=== PATIENT | male | born 1945 | race Caucasian/White ===

== ENCOUNTER 2022-02-09 10:39 | Emergency (ER) | payer MEDICARE, OTHER ==
[2022-02-09] MEDS ORDERED: Iopamidol 612 MG/ML 100 ML Bottle IV ONE (12:56)
[2022-03-06 14:15] LABS: ANION GAP 13.6 mEq/L (7-13); CHLORIDE,CL 97 mmol/L (98-107); ESTIMATED GFR 47 mL/min (>=60); SODIUM,NA 133 mmol/L (136-145)
[2022-03-06 14:19] LABS: CORONAVIRUS COVID-19 NAA POSITIVE (NEGATIVE); RESPIRATORY SYNCYTIAL VIR NAA NEGATIVE (NEGATIVE)
== END 2022-02-09 17:30 ==
LOC: DL.ED 10:39
DX: A41.9 Sepsis, unspecified organism (principal); Z91.49 Other personal history of psychological trauma, not elsewhere classified; Z20.822 Contact with and (suspected) exposure to COVID-19
CPT/HCPCS: 0241U; 36415; 71045; 71260; 76705; 80053; 81001; 83605; 83690; 83735; 84145; 84484; 85025; 85379; 86140; 87040; 96361; 96374; 96375; 99285; 93005; Q9967

== ENCOUNTER 2022-09-08 17:01 | Inpatient (IN) | payer MEDICARE, OTHER ==
[2022-09-08] MEDS ORDERED: Hydrocortisone Sodium Succinate 100 MG/2 ML SDV IVPUSH ONE (17:18)
[2022-09-08] MEDS ORDERED: Sodium Chloride 0.9% 1,000 ML IV ONE ×2 (17:19→17:55)
[2022-09-08] MEDS ORDERED: Ondansetron 4 MG/2 ML SDV IV ONE (17:19)
[2022-09-08] MEDS ORDERED: cefTRIAXone 2 GM Vial IVPUSH ONE (17:19)
[2022-09-08] MEDS ORDERED: Famotidine 20 MG/2 ML SDV IVPUSH ONE (17:19)
[2022-09-08 17:32] LABS: BASOPHILS PERCENT AUTO 0.3 % (0.0-1.0); EOSINOPHILS PERCENT AUTO 3.7 % (1.0-3.0); HEMATOCRIT 45.2 % (40.0-54.0); HEMOGLOBIN 15.3 g/dL (14.0-18.0); LYMPHOCYTES PERCENT AUTO 5.1 % (20.5-50.1); MEAN CORPUSCULAR HEMOGLOBIN 32.1 pg (27.0-34.0); MEAN CORPUSCULAR HGB CONC 33.8 g/dL (33.0-35.0); MONOCYTES PERCENT AUTO 10.4 % (2-8); NEUTROPHILS PERCENT AUTO 80.5 % (42.2-75.2); PLATELET COUNT,PLT 190 10^3/uL (150-450); RED BLOOD CELL COUNT 4.76 10^6/uL (4.6-6.2)
[2022-09-08] MEDS ORDERED: Acetaminophen 500 MG Tab PO ONE (17:37)
[2022-09-08] MEDS: Sodium Chloride 0.9% 10 ML Syringe FLUSH PRN (17:44)
[2022-09-08 17:47] LABS: A/G RATIO 1.1; ALBUMIN 3.5 g/dL (3.4-5.0); BILIRUBIN TOTAL 1.3 mg/dL (0.2-1.0); BUN/CREATININE RATIO 11.3 (No establ ref range); CALCIUM 8.9 mg/dL (8.5-10.1); CREATININE 1.41 mg/dL (0.70-1.30); EST CRCL DRUG DOSING (CG) 51.82 mL/min; PROTEIN TOTAL,TP 6.6 g/dL (6.4-8.2)
[2022-09-08 17:51] LABS: LACTIC ACID 1.9 mmol/L (0.4-2.0)
[2022-09-08 18:01] LABS: APPEARANCE,URINE CLEAR (CLEAR); BILIRUBIN,URINE NEGATIVE (NEGATIVE); COLOR,URINE YELLOW (YELLOW); GLUCOSE,URINE NEGATIVE (NEGATIVE); KETONES,URINE NEGATIVE (NEGATIVE); LEUKOCYTE ESTERASE,URINE NEGATIVE (NEGATIVE); NITRITE,URINE NEGATIVE (NEGATIVE); OCCULT BLOOD,URINE SMALL (NEGATIVE); PH,URINE 7.5 (5.0-9.0); PROTEIN,URINE 100 (NEGATIVE); UROBILINOGEN,URINE 0.2 mg/dL (0.2-1.0)
[2022-09-08] MEDS ORDERED: Iopamidol 612 MG/ML 100 ML Bottle IVPUSH ONE (18:05)
[2022-09-08 18:08] LABS: AMORPHOUS SEDIMENT,URINE RARE /HPF (NOT SEEN); BACTERIA,URINE RARE /HPF (0-FEW/HPF); EPITHELIAL CELLS,URINE RARE /HPF (NOT SEEN); MUCUS,URINE RARE /LPF (NOT SEEN); WBC,URINE 20-30 /HPF (0-5/HPF)
[2022-09-08 18:23] LABS: AMYLASE 33 U/L (25-115); LIPASE 54 U/L (73-393)
[2022-09-08 19:42] LABS: APPEARANCE,URINE CLEAR (CLEAR); BILIRUBIN,URINE NEGATIVE (NEGATIVE); COLOR,URINE YELLOW (YELLOW); GLUCOSE,URINE NEGATIVE (NEGATIVE); KETONES,URINE NEGATIVE (NEGATIVE); LEUKOCYTE ESTERASE,URINE TRACE (NEGATIVE); NITRITE,URINE NEGATIVE (NEGATIVE); OCCULT BLOOD,URINE TRACE-INTACT (NEGATIVE); PROTEIN,URINE 100 (NEGATIVE); UROBILINOGEN,URINE 0.2 mg/dL (0.2-1.0)
[2022-09-08 19:55] LABS: BACTERIA,URINE RARE /HPF (0-FEW/HPF); EPITHELIAL CELLS,URINE NOT SEEN /HPF (NOT SEEN); RBC,URINE 0-5 /HPF (0-5); WBC,URINE 20-30 /HPF (0-5/HPF)
[2022-09-08] MEDS ORDERED: Acetaminophen 325 MG Tab PO PRN (20:52)
[2022-09-08] MEDS ORDERED: Albuterol 0.083% 2.5 MG/3 ML Neb Soln NEB PRN (20:52)
[2022-09-08] MEDS ORDERED: Polyethylene Glycol 3350 Powder 17 GM Packet PO PRN (20:52)
[2022-09-08] MEDS ORDERED: Acetaminophen/HYDROcodone 325-5 MG Tab PO PRN (20:52)
[2022-09-08] MEDS ORDERED: Ondansetron 4 MG/2 ML SDV IVPUSH PRN (20:52)
[2022-09-08] MEDS ORDERED: Sodium Chloride 0.9% 1,000 ML IV SCH (21:00)
[2022-09-08] MEDS ORDERED: Melatonin 3 MG Tab PO PRN (21:02)
[2022-09-08] MEDS: predniSONE 5 MG Tab PO SCH (21:19)
[2022-09-08] MEDS: atorvaSTATin 20 MG Tab PO SCH (21:35)
[2022-09-08] MEDS: Hydrocortisone Sodium Succinate 100 MG/2 ML SDV IVPUSH SCH (21:35)
[2022-09-08] MEDS ORDERED: Hydrocortisone Sodium Succinate 100 MG/2 ML SDV IVPUSH SCH (22:00)
[2022-09-09] MEDS: Hydrocortisone Sodium Succinate 100 MG/2 ML SDV IVPUSH SCH (05:45)
[2022-09-09 06:19] LABS: BASOPHILS PERCENT AUTO 0.2 % (0.0-1.0); EOSINOPHILS PERCENT AUTO 1.9 % (1.0-3.0); HEMATOCRIT 40.9 % (40.0-54.0); HEMOGLOBIN 13.6 g/dL (14.0-18.0); LYMPHOCYTES PERCENT AUTO 4.6 % (20.5-50.1); MEAN CORPUSCULAR HEMOGLOBIN 31.8 pg (27.0-34.0); MEAN CORPUSCULAR HGB CONC 33.3 g/dL (33.0-35.0); MEAN CORPUSCULAR VOLUME 95.6 fL (80-100); MONOCYTES PERCENT AUTO 9.2 % (2-8); NEUTROPHILS PERCENT AUTO 84.1 % (42.2-75.2); PLATELET COUNT,PLT 174 10^3/uL (150-450); RED BLOOD CELL COUNT 4.28 10^6/uL (4.6-6.2); WHITE BLOOD CELL COUNT,WBC 8.9 10^3/uL (5.0-10.0)
[2022-09-09 06:28] LABS: ANION GAP 12.2 mEq/L (7-13); CALCIUM 8.1 mg/dL (8.5-10.1); CREATININE 1.24 mg/dL (0.70-1.30); EST CRCL DRUG DOSING (CG) 58.92 mL/min; POTASSIUM,K 4.2 mmol/L (3.5-5.1)
[2022-09-09] MEDS: Omeprazole 20 MG Cap.CR PO SCH (09:10)
[2022-09-09] MEDS: Aspirin 81 MG Tab.EC PO SCH (09:10)
[2022-09-09] MEDS: Allopurinol 300 MG Tab PO SCH (09:10)
[2022-09-09] MEDS: Tamsulosin 0.4 MG Cap.ER PO SCH (09:11)
[2022-09-09] MEDS: Sodium Chloride 0.9% 10 ML Syringe FLUSH PRN (09:11)
[2022-09-09] MEDS: predniSONE 5 MG Tab PO SCH ×2 (09:11→17:20)
[2022-09-09] MEDS: Enoxaparin 40 MG/0.4 ML Syringe SUBCUT SCH (09:11)
[2022-09-09] MEDS: cefTRIAXone 2 GM Vial IVPUSH SCH (09:12)
[2022-09-09] MEDS: atorvaSTATin 20 MG Tab PO SCH (20:36)
[2022-09-10 06:25] LABS: BASOPHILS PERCENT AUTO 0.4 % (0.0-1.0); EOSINOPHILS PERCENT AUTO 8.3 % (1.0-3.0); HEMATOCRIT 37.2 % (40.0-54.0); HEMOGLOBIN 12.4 g/dL (14.0-18.0); LYMPHOCYTES PERCENT AUTO 11.4 % (20.5-50.1); MEAN CORPUSCULAR HGB CONC 33.3 g/dL (33.0-35.0); MEAN CORPUSCULAR VOLUME 95.9 fL (80-100); MONOCYTES PERCENT AUTO 9.2 % (2-8); NEUTROPHILS PERCENT AUTO 70.7 % (42.2-75.2); PLATELET COUNT,PLT 171 10^3/uL (150-450); RED BLOOD CELL COUNT 3.88 10^6/uL (4.6-6.2)
[2022-09-10 06:39] LABS: ANION GAP 12.1 mEq/L (7-13); CALCIUM 8.1 mg/dL (8.5-10.1); CREATININE 1.14 mg/dL (0.70-1.30); EST CRCL DRUG DOSING (CG) 64.09 mL/min; POTASSIUM,K 4.1 mmol/L (3.5-5.1)
[2022-09-10] MEDS: Tamsulosin 0.4 MG Cap.ER PO SCH (09:11)
[2022-09-10] MEDS: Enoxaparin 40 MG/0.4 ML Syringe SUBCUT SCH (09:11)
[2022-09-10] MEDS: predniSONE 5 MG Tab PO SCH ×2 (09:12→18:31)
[2022-09-10] MEDS: cefTRIAXone 2 GM Vial IVPUSH SCH (09:12)
[2022-09-10] MEDS: Allopurinol 300 MG Tab PO SCH (09:12)
[2022-09-10] MEDS: Omeprazole 20 MG Cap.CR PO SCH (09:12)
[2022-09-10] MEDS: Aspirin 81 MG Tab.EC PO SCH (11:08)
[2022-09-10] MEDS: atorvaSTATin 20 MG Tab PO SCH (20:40)
[2022-09-10] MEDS: Sodium Chloride 0.9% 10 ML Syringe FLUSH PRN (20:41)
[2022-09-11 06:16] LABS: BASOPHILS PERCENT AUTO 0.3 % (0.0-1.0); EOSINOPHILS PERCENT AUTO 7.7 % (1.0-3.0); HEMATOCRIT 37.8 % (40.0-54.0); HEMOGLOBIN 12.5 g/dL (14.0-18.0); LYMPHOCYTES PERCENT AUTO 15.4 % (20.5-50.1); MEAN CORPUSCULAR HEMOGLOBIN 31.7 pg (27.0-34.0); MEAN CORPUSCULAR HGB CONC 33.1 g/dL (33.0-35.0); MEAN CORPUSCULAR VOLUME 95.9 fL (80-100); MONOCYTES PERCENT AUTO 10.3 % (2-8); NEUTROPHILS PERCENT AUTO 66.3 % (42.2-75.2); PLATELET COUNT,PLT 192 10^3/uL (150-450); RED BLOOD CELL COUNT 3.94 10^6/uL (4.6-6.2)
[2022-09-11 06:32] LABS: CALCIUM 8.2 mg/dL (8.5-10.1); CREATININE 1.05 mg/dL (0.70-1.30); EST CRCL DRUG DOSING (CG) 69.59 mL/min
[2022-09-11] MEDS: Enoxaparin 40 MG/0.4 ML Syringe SUBCUT SCH (08:11)
[2022-09-11] MEDS: Allopurinol 300 MG Tab PO SCH (08:11)
[2022-09-11] MEDS: cefTRIAXone 2 GM Vial IVPUSH SCH (08:11)
[2022-09-11] MEDS: Omeprazole 20 MG Cap.CR PO SCH (08:12)
[2022-09-11] MEDS: Tamsulosin 0.4 MG Cap.ER PO SCH (08:12)
[2022-09-11] MEDS: predniSONE 5 MG Tab PO SCH (08:12)
[2022-09-11] MEDS: Aspirin 81 MG Tab.EC PO SCH (08:13)
== END 2022-09-11 11:15 | disposition home or self-care (01) | DRG 872 ==
LOC: DL.ED 17:01 → DL.MS 20:01 → DL.ED 20:18
PROVIDERS: ADMIT Internal Medicine; ATTEND Internal Medicine
DX: A41.9 Sepsis, unspecified organism (principal); N17.9 Acute kidney failure, unspecified; E27.40 Unspecified adrenocortical insufficiency; E78.5 Hyperlipidemia, unspecified; N18.30 Chronic kidney disease, stage 3 unspecified; D63.1 Anemia in chronic kidney disease; K21.9 Gastro-esophageal reflux disease without esophagitis; M10.9 Gout, unspecified; Z20.822 Contact with and (suspected) exposure to COVID-19; N52.9 Male erectile dysfunction, unspecified; G47.33 Obstructive sleep apnea (adult) (pediatric); E66.9 Obesity, unspecified; N13.9 Obstructive and reflux uropathy, unspecified; N32.0 Bladder-neck obstruction; E11.65 Type 2 diabetes mellitus with hyperglycemia; I12.9 Hypertensive chronic kidney disease with stage 1 through stage 4 chronic kidney disease, or unspecified chronic kidney disease; E11.22 Type 2 diabetes mellitus with diabetic chronic kidney disease; N30.90 Cystitis, unspecified without hematuria; Z68.30 Body mass index [BMI] 30.0-30.9, adult; Z86.711 Personal history of pulmonary embolism; Z79.82 Long term (current) use of aspirin; Z79.899 Other long term (current) drug therapy; Z85.51 Personal history of malignant neoplasm of bladder
CPT/HCPCS: 36415; 51702; 71045; 74177; 76705; 80048; 80053; 81001; 82150; 83605; 83690; 83880; 85025; 87040; 87086; 87804; 93005; 93010; 96361; 96374; 96375; 99285; 99285-25; A9270-GY; J0696; J1650; J1720; J2405; J3490; J7030; J7512; Q9967; U0002

== ENCOUNTER 2025-01-08 14:38 | Emergency (ER) | payer MEDICARE, OTHER ==
[2025-01-08 15:11] LABS: PLATELET COUNT,PLT 177 10^3/uL (150-450); RED BLOOD CELL COUNT 4.16 10^6/uL (4.6-6.2); WHITE BLOOD CELL COUNT,WBC 8.8 10^3/uL (5.0-10.0)
[2025-01-08 15:19] LABS: BASOPHILS PERCENT AUTO 0.5 % (0.0-1.0); EOSINOPHILS PERCENT AUTO 1.4 % (1.0-3.0); LYMPHOCYTES PERCENT AUTO 8.5 % (20.5-50.1); MONOCYTES PERCENT AUTO 8.7 % (2-8); NEUTROPHILS PERCENT AUTO 80.9 % (42.2-75.2)
[2025-01-08 15:31] LABS: B-TYPE NATRIURETIC PEPTIDE,BNP 64.0 pg/ml (0-100)
[2025-01-08 15:35] LABS: INR 0.9 (0.9-1.2)
[2025-01-08 15:40] LABS: A/G RATIO 1.07; ALANINE AMINOTRANSFERASE,ALT 44.0 U/L (16-63); ASPARTATE AMNIOTRANSFERASE,AST 18.0 U/L (15-37); BILIRUBIN TOTAL 0.9 mg/dL (0.2-1.0); BLOOD UREA NITROGEN,BUN 15.0 mg/dL (7-18); CARBON DIOXIDE,CO2 31.0 mmol/L (21-32); CHLORIDE,CL 105.0 mmol/L (98-107); CREATININE 1.31 mg/dL (0.70-1.30); EST CRCL DRUG DOSING (CG) 51.01 mL/min; ESTIMATED GFR 56.0 mL/min (>=60); GLUCOSE RANDOM 124.0 mg/dL (70-99); POTASSIUM,K 4.4 mmol/L (3.5-5.1); PROTEIN TOTAL,TP 6.2 g/dL (6.4-8.2); SODIUM,NA 143.0 mmol/L (136-145); TSH ULTRASENSITIVE 0.31 uIU/mL (0.36-3.74)
[2025-01-08 16:50] LABS: BAND PERCENT MAN 3 %; EOSINOPHILS PERCENT MAN 1 % (1-3); LYMPHOCYTES PERCENT MAN 9 % (20-50); MONOCYTES PERCENT MAN 6 % (2-8); SEG NEUTROPHILS PERCENT MAN 81 % (42-75)
== END 2025-01-08 16:32 | disposition home or self-care (01) ==
LOC: DL.ED 14:38
DX: R60.0 Localized edema (principal); E78.00 Pure hypercholesterolemia, unspecified; Z79.82 Long term (current) use of aspirin; Z79.899 Other long term (current) drug therapy; Z90.49 Acquired absence of other specified parts of digestive tract
CPT/HCPCS: 36415; 80053; 83880; 84443; 85025; 85610; 99284